=== PATIENT | male | born 1940 | race Caucasian/White ===

== ENCOUNTER 2021-10-12 13:57 | Outpatient (CLI) | payer OTHER, SELFPAY ==
--- NOTE | ~2021-10-12 | XR_ITS ---
XR chest 2V DATE: 10/12/2021 14:18 INDICATION: Chronic cough. Previous smoker. TECHNIQUE: PA and lateral views COMPARISON: None FINDINGS: Normal heart size. Aortic arch calcification. No hilar or mediastinal enlargement. Bilatera l mild apical capping apical pulmonary scarring. Moderate hyperinflation No pulmonary infiltrate or consolidation, pleural effusion or pulmonary vascu lar congestion or pneumothorax is detected. Diffuse osteopenia. IMPRESSION: Moderate hyperinflation; no active cardiopulmonary disease Aortic calcification Osteopenia Reviewed, dictated and finalized at location A.
== END 2021-10-12 13:58 | disposition home or self-care (01) ==
LOC: ANHIMG 14:02
PROVIDERS: PCP Family Medicine; Visit Provider Nurse Practitioner Family
DX: R05.3 Chronic cough (principal); M85.88 Other specified disorders of bone density and structure, other site; I70.0 Atherosclerosis of aorta
CPT/HCPCS: 71046